=== PATIENT | female | born 1975 | race Caucasian/White ===

== ENCOUNTER 2017-07-28 15:40 | Emergency (ER) | payer MEDICAID, MEDICARE ==
[2017-07-28 15:49] VITALS: BP 139/84
--- NOTE | 2017-07-28 16:13 | UC ---
Throat Pain/Nasal Hari HPI - HPI Summary HPI Summary: 42 y/o female presents to the urgent care c/o dry cough, nasal congestion, yellowish nasal discharge for hte past 2 weeks. Mild sore throat at times w/ + PND She has been taking Sudafed PO w/o any relief of symptoms. sinus Pain and BURDEN is 8/10 today. she took Benadryl Po this morning to alleviate symptoms/ Her LF ear feels w/ a lot of pressure and she has felt mild chills at times and hot flashes. Pt denies fever, SOB, chest pain, wheezing, abdominal pain, N/V/D - History of Current Complaint Chief Complaint: UCRespiratory Stated Complaint: THROAT COMPLAINT Time Seen by Provider: 07/28/17 16:06 Hx Obtained From: Patient Hx Last Menstrual Period: July 05, 2017 Onset/Duration: Gradual Onset, Lasting Weeks - 2 weeks, Still Present, Worse Since - today Severity: Moderate Pain Intensity: 9 - sinus pain and BURDEN Pain Scale Used: 0-10 Numeric Cough: Nonproductive Associated Signs & Symptoms: Positive: Sinus Discomfort, Nasal Discharge, Other - chills w/ sore throat and +PND - Epiglottits Risk Factors Epiglottis Risk Factors: Negative - Allergies/Home Medications Allergies/Adverse Reactions: Allergies Allergy/AdvReac Type Severity Reaction Status Date / Time Penicillins Allergy Difficulty Verified 07/28/17 15:50 Breathing PMH/Surg Hx/FS Hx/Imm Hx Previously Healthy: Yes Endocrine History: Diabetes, Dyslipidemia GI/ History: Gastroesophageal Reflux - Surgical History Surgical History: Yes Surgery Procedure, Year, and Place: Tubal 2009,may 2014,2013 right shoulder , left shoulder 2 yrs ago - Family History Known Family History: Positive: Cardiac Disease, Hypertension, Diabetes, Respiratory Disease - asthma - Social History Occupation: Employed Full-time Lives: With Family Alcohol Use: None Substance Use Type: None Smoking Status (MU): Never Smoked Tobacco - Immunization History Most Recent Influenza Vaccination: Review of Systems Constitutional: Chills Skin: Negative Eyes: Negative ENT: Sore Throat, Ear Ache - left ear pressure, Nasal Discharge, Sinus Congestion, Sinus Pain/Tenderness Respiratory: Cough - dry Cardiovascular: Negative Gastrointestinal: Negative Genitourinary: Negative Motor: Negative Neurovascular: Negative Musculoskeletal: Negative Neurological: Headache Psychological: Negative Is Patient Immunocompromised?: No All Other Systems Reviewed And Are Negative: Yes Physical Exam - Summary Physical Exam Summary: Vitals: reviewed General: Well developed, well-nourished obese female patient with NAD. Head and face: Normocephalic and atraumatic, Positive tenderness over the frontal and maxillary sinuses.. Eyes: PERRLA, EOMI x 2. Normal conjunctiva. No eye discharge. ENT: Ears and TM with normal limits. Nose: edematous and erythematous nasal mucosa with with yellowish discharge and erythematous mucosa. Pharynx with erythema, no exudate. +PND yellowish Neck: Supple, no JVD, no carotid bruits and no lymphadenopathy. Lungs: clear, no rales, no rhonchi, no wheezes. CVS: RRR, S1 and S2 present no murmurs or gallops appreciated. Abdomen: soft nontender with positive bowel sounds. Extremities: no edema noted. Neuro: WNL. Skin: warm and dry Triage Information Reviewed: Yes Vital Signs: Initial Vital Signs Temp 98.9 F 07/28/17 15:47 Pulse 94 07/28/17 15:47 Resp 18 07/28/17 15:47 BP 139/84 07/28/17 15:47 Pulse Ox 98 07/28/17 15:47 Throat Pain/Nasal Course/Dx - Course Course Of Treatment: 42 y/o female presents to the urgent care c/o dry cough, nasal congestion, yellowish nasal discharge for hte past 2 weeks. Mild sore throat at times w/ +PND. She has been taking Sudafed PO w/o any relief of symptoms. sinus Pain and BURDEN is 8/10 today. she took Benadryl Po this morning to alleviate symptoms/ Her LF ear feels w/ a lot of pressure and she has felt mild chills at times and hot flashes. Pt denies fever, SOB, chest pain, wheezing , abdominal pain, N/V/D. Hx obtained. Pt w/ Acute bacterial sinusitis on examination. Pt with 2 weeks of symptoms getting worse. Pt PCP allergic. Pt Rx Doxycycline PO and flonase nasal spray. Tylenol PO for her headache.Pt given Ibuprofen PO at the clinic to alleivate BURDEN. Pt tolerated well medication given by nurse. Discharge instructions explained to Pt. Advised to Return to the clinic or PCP if symptoms do not improve.Pt understood and agreed with plan of care. - Differential Dx/Diagnosis Differential Diagnosis/HQI/PQRI: Influenza, Laryngitis, Pharyngitis, Sinusitis, URI Provider Diagnoses: 1- Acute bacterial sinusitis Discharge - Sign-Out/Discharge Documenting (check all that apply): Discharge/Admit/Transfer - D/C home - Discharge Plan Condition: Stable Disposition: HOME Prescriptions: Acetaminophen TAB* [Tylenol TAB*] 650 mg PO Q6H PRN #20 tab PRN Reason: Pain DOXYcycline CAP(*) [DOXYcycline 100MG CAP(*)] 100 mg PO BID #20 cap Fluticasone NASAL SPRAY 50MCG* [Flonase NASAL SPRAY 50MCG*] 2 spray BOTH NARES DAILY #1 btl Patient Education Materials: Sinusitis (ED) Referrals: Jaskaran Burns MD [Primary Care Provider] - 3 Days Additional Instructions: 1- Please increase fluid intake and rest. take full course of antibiotic to avoid resistance 2-Use Flonase as directed to help drain fluid. Also buy saline drops to clear sinuses 3-Take Tylenol Po to alleviate headache and sinus pain 4-Return to the clinic or PCP in 3 days if symptoms do not improve for further management and treatment - Billing Disposition and Condition Condition: STABLE Disposition: HOME
[2017-07-28] MEDS ORDERED: Ibuprofen TAB* 400 MG PO ONE (16:16)
== END 2017-07-28 16:30 | disposition home or self-care (01) ==
LOC: UCEAST 15:40
DX: J01.90 Acute sinusitis, unspecified (principal); B96.89 Other specified bacterial agents as the cause of diseases classified elsewhere; Z88.0 Allergy status to penicillin
CPT/HCPCS: 99212; A9270-GY; G0463

== ENCOUNTER 2017-09-17 08:30 | Emergency (ER) | payer MEDICAID ==
[2017-09-17 08:52] VITALS: BP 127/79
[2017-09-17] MEDS ORDERED: HYDROcodone/ACETAMIN 5-325 MG* 1 TAB PO ONE (09:13)
--- NOTE | 2017-09-17 09:19 | UC ---
Back Pain HPI - HPI Summary HPI Summary: Pt is a 42 y/o F w/ c/o right sided, lower back pain onsetting 2 days ago. Pain has gradually worsened since onset and on triage pain is rated 10/10. Pt believes pain did not result from any movements and has not had episodes w/ similar Sx previously. Movements worsen pain. Pt denies frontal pain and dysuria but notes increased frequency of urination. Pain does not radiate to buttocks. No Hx of UTIs nor kidney stones. - History of Current Complaint Chief Complaint: UCBackPain Stated Complaint: BACK PAIN Time Seen by Provider: 09/17/17 08:47 Hx Obtained From: Patient Hx Last Menstrual Period: 08/25/17 Onset/Duration: Lasting Days - 2 days ago, Worse Since Timing: Constant Severity Currently: Severe Pain Intensity: 10 Pain Scale Used: 0-10 Numeric - 10/10 Back Pain: Is Discrete @ - right lower back Aggravating Factor(s): Movement Alleviating Factor(s): Nothing Associated Signs And Symptoms: Positive: Other - increased frequency of urination, pain with movement - Allergies/Home Medications Allergies/Adverse Reactions: Allergies Allergy/AdvReac Type Severity Reaction Status Date / Time Penicillins Allergy Difficulty Verified 09/17/17 08:52 Breathing PMH/Surg Hx/FS Hx/Imm Hx Endocrine History: Diabetes, Other Other Endocrine History: NEGATIVE: thyroid disease Cardiovascular History: Hypertension Respiratory History: Other Other Respiratory History: NEGATIVE: COPD, asthma GI/ History: Other Other GI/ History: NEGATIVE: ulcer Other History Of: Negative For: HIV - Surgical History Surgical History: Yes Surgery Procedure, Year, and Place: Tubal 2009,may 2014,2013 right shoulder , left shoulder 2 yrs ago - Family History Known Family History: Positive: Cardiac Disease, Hypertension, Diabetes, Respiratory Disease - asthma - Social History Alcohol Use: None Substance Use Type: None Smoking Status (MU): Never Smoked Tobacco - Immunization History Most Recent Influenza Vaccination: 2014/2015 Review of Systems Genitourinary: Frequency - increased urination frequency, Other - NEGATIVE: dysuria Musculoskeletal: Other: - right-sided lower back pain aggravated by movements All Other Systems Reviewed And Are Negative: Yes Physical Exam - Summary Physical Exam Summary: General: well-appearing, no mild to moderate pain distress with movement Skin: warm, color reflects adequate perfusion, dry Head: normal Eyes: EOMI, GIL ENT: normal Neck: supple, nontender Respiratory: CTA, breath sounds present Cardiovascular: RRR Abdomen: soft, nontender Bowel: present Musculoskeletal: strength/ROM intact, tender to palpation midline lumbar spine and right flank Neurological: sensory/motor intact, A&O x3 Psychological: affect/mood appropriate Triage Information Reviewed: Yes Vital Signs: Initial Vital Signs Temp 99.6 F 09/17/17 08:50 Pulse 82 09/17/17 08:50 Resp 14 09/17/17 08:50 BP 127/79 09/17/17 08:50 Pulse Ox 97 09/17/17 08:50 Vital Signs Reviewed: Yes Back Pain Course/Dx - Course Course Of Treatment: DISCUSSED THE NEED TO GO TO THE EMERGENCY DEPARTMENT FOR FURTHER EVALUATION OF HER FLANK AND LOW BACK PAIN TO EVALUATE FOR POSSIBLE KIDNEY STONE AND OTHER CAUSES OF FLANK PAIN. THERE IS NO CT OR ULTRASOUND HERE IN CLINIC TODAY. - Differential Dx/Diagnosis Provider Diagnoses: LOW BACK PAIN. RIGHT FLANK PAIN Discharge - Sign-Out/Discharge Documenting (check all that apply): Patient Departure - Discharge Plan Condition: Stable Disposition: HOME-RECOMMEND TO ED Patient Education Materials: Acute Low Back Pain (ED), Flank Pain (ED) Referrals: Jaskaran Burns MD [Primary Care Provider] - Additional Instructions: GO DIRECTLY TO THE EMERGENCY DEPARTMENT FOR FURTHER EVALUATION OF YOUR RIGHT FLANK/BACK PAIN. - Billing Disposition and Condition Condition: STABLE Disposition: Home-Recommend to ED
== END 2017-09-17 09:45 | disposition home health service (06) ==
LOC: UCEAST 08:30
DX: M54.5 Low back pain (principal); R35.0 Frequency of micturition; E11.9 Type 2 diabetes mellitus without complications; I10 Essential (primary) hypertension; Z88.0 Allergy status to penicillin; Z82.49 Family history of ischemic heart disease and other diseases of the circulatory system; Z83.3 Family history of diabetes mellitus; Z82.5 Family history of asthma and other chronic lower respiratory diseases
CPT/HCPCS: 81003; 87086; 99212; G0463

== ENCOUNTER 2017-09-17 15:59 | Emergency (ER) | payer MEDICARE, MEDICAID ==
[2017-09-17] MEDS ORDERED: NS 0.9% 1000 ML* 1,000 ML IV ONE (17:40)
[2017-09-17 18:05] LABS: ABS Basophils 0.1 10^3/ul (0-0.2); ABS Eosinophils 0.2 10^3/ul (0-0.6); ABS Lymphocytes 2.3 10^3/ul (1.0-4.8); ABS Monocytes 0.4 10^3/ul (0-0.8); ABS Neutrophils 3.5 10^3/ul (1.5-7.7); ABS Nucleated RBC 0 10^3/ul; Eosinophil % 3.2 % (0-6); Hematocrit 39 % (35-47); Hemoglobin 13.2 g/dl (12.0-16.0); Lymphocyte % 35.5 % (25-47); Mean Corpuscular HGB Conc 34 g/dl (31-36); Mean Corpuscular Hemoglobin 31 pg (27-31); Mean Corpuscular Volume 91 fL (80-97); Mean Platelet Volume 8.1 um3 (7.4-10.4); Nucleated Red Blood Cells % 0.1; Platelet Count 242 10^3/ul (150-450); Red Blood Count 4.22 10^6/ul (4.00-5.40); Red Cell Distribution Width 14 % (10.5-15); White Blood Count 6.5 10^3/ul (3.5-10.8)
[2017-09-17 18:17] LABS: Urine Appearance Cloudy; Urine Blood Negative (Negative); Urine Color Yellow; Urine Ketones Negative (Negative); Urine Protein Negative (Negative); Urine Red Blood Cell Trace(0-2/hpf) (Absent); Urine Specific Gravity 1.018 (1.010-1.030); Urine Urobilinogen Negative (Negative); Urine White Blood Cell Trace(0-5/hpf) (Absent)
[2017-09-17 18:22] LABS: EGFR Non-African American 88.4 (>60)
[2017-09-17] MEDS ORDERED: Morphine VIAL* 10 MG/ML 1 ML VIAL IV ONE (18:25)
[2017-09-17] MEDS ORDERED: Ondansetron INJ* 2 MG/ML VIAL IV PRN (18:25)
--- NOTE | 2017-09-17 18:27 | RAD ---
CLINICAL HISTORY: Right flank pain COMPARISON: None TECHNIQUE: Noncontrast CT examination of the abdomen and pelvis from the lung bases through the initial tuberosities. FINDINGS: VISUALIZED LUNG BASES: The visualized lung bases are grossly clear. There is no pleural effusion. ABDOMEN AND PELVIS: Evaluation of the solid organs and vasculature is limited without intravenous contrast. The liver is homogenously hypodense relative to the spleen. The liver is enlarged measuring 25 cm in greatest cephalocaudal dimension. The spleen, pancreas and adrenal glands are grossly normal in appearance. The gallbladder is normal. The kidneys are normal in appearance without focal mass, calcification or signs of hydronephrosis. Evaluation of the gastrointestinal tract is limited without oral contrast. The small and large bowel are not distended.The patient's normal appendix is identified in the right lower quadrant measuring 6 mm in diameter (axial image #128). There is no gross retroperitoneal or mesenteric lymphadenopathy. The pelvic viscera is normal in appearance. Surgical clips are noted the bilateral fallopian tubes consistent with the patient's history of tubal ligation. The abdominal aorta and iliac arteries are normal in course and diameter. Mild degenerative changes include multilevel loss of intervertebral disc height involving the lower thoracic and lumbar spine.There are no sinister bone lesions. IMPRESSION: 1. No renal calculi or signs of obstructive uropathy. 2. Hepatomegaly with likely hepatic steatosis. Please correlate to LFTs.
--- NOTE | 2017-09-17 18:34 | ED ---
Back Pain - HPI Summary HPI Summary: Pt sent from c/o right flank pain, nausea, flank pain with urination x 2 days. Also c/o alternating constipation with diarrhea. Flank pain initially intermittent, now constant since yesterday. Denies fever, hx of kidney stones, trauma, hematuria, vaginal sx, cp, sob, vomiting. Med hx = DM, HTN, HDL, depression. Ab/pel surgical hx = BTL. - History of Current Complaint Chief Complaint: EDFlankPain Stated Complaint: FLANK PAIN Time Seen by Provider: 09/17/17 17:37 Hx Obtained From: Patient Hx Last Menstrual Period: 08/25/17 Onset/Duration: Gradual Onset Onset/Duration: Started Days Ago Timing: Constant, Intermittent Back Pain Location: Is Discrete @ Severity Initially: Mild Severity Currently: Severe Pain Intensity: 4 Pain Scale Used: 0-10 Numeric Character: Sharp, Dull, Aching Associated Signs And Symptoms: Positive: Flank Pain - Allergies/Home Medications Allergies/Adverse Reactions: Allergies Allergy/AdvReac Type Severity Reaction Status Date / Time Penicillins Allergy Difficulty Verified 09/17/17 08:52 Breathing PMH/Surg Hx/FS Hx/Imm Hx Endocrine/Hematology History: Reports: Hx Diabetes - II Denies: Hx Anticoagulant Therapy, Hx Thyroid Disease Cardiovascular History: Reports: Hx Hypertension Denies: Hx Pacemaker/ICD Respiratory History: Reports: Hx Pneumonia Denies: Hx Asthma, Hx Chronic Obstructive Pulmonary Disease (COPD) GI History: Denies: Hx Ulcer History: Denies: Hx Dialysis Musculoskeletal History: Denies: Hx Rheumatoid Arthritis, Hx Osteoporosis Sensory History: Denies: Hx Hearing Aid Neurological History: Denies: Hx CVA Psychiatric History: Reports: Hx Anxiety Denies: Hx Panic Disorder - Cancer History Hx Chemotherapy: No Hx Radiation Therapy: No - Surgical History Surgery Procedure, Year, and Place: Tubal 2009,may 2014,2013 right shoulder , left shoulder 2 yrs ago Infectious Disease History: No Infectious Disease History: Denies: Hx Clostridium Difficile, Hx Hepatitis, Hx Human Immunodeficiency Virus (HIV), History Other Infectious Disease, Traveled Outside the [place] in Last 30 Days - Family History Known Family History: Positive: None, Unknown, Cardiac Disease, Hypertension, Diabetes, Respiratory Disease - asthma - Social History Alcohol Use: None Hx Substance Use: No Substance Use Type: Reports: None Hx Tobacco Use: No Smoking Status (MU): Former Smoker Review of Systems Constitutional: Negative Eyes: Negative ENT: Negative Cardiovascular: Negative Respiratory: Negative Positive: Nausea Positive: flank pain Musculoskeletal: Negative Skin: Negative Neurological: Negative Psychological: Normal All Other Systems Reviewed And Are Negative: Yes Physical Exam - Summary Physical Exam Summary: Rt CVA tenderness. Abdomen diffusely mildly TTP. Triage Information Reviewed: Yes Vital Signs On Initial Exam: Initial Vitals Temp Pulse Resp BP Pulse Ox 98.4 F 82 16 131/66 96 09/17/17 16:13 09/17/17 16:13 09/17/17 16:13 09/17/17 16:13 09/17/17 16:13 Vital Signs Reviewed: Yes Appearance: Positive: Well-Appearing Skin: Positive: Warm Head/Face: Positive: Normal Head/Face Inspection Eyes: Positive: Normal Neck: Positive: Supple Respiratory/Lung Sounds: Positive: Clear to Auscultation Cardiovascular: Positive: Normal Abdomen Description: Positive: Other: Musculoskeletal: Positive: Normal Neurological: Positive: Normal Psychiatric: Positive: Normal AVPU Assessment: Alert - Bonita Coma Scale Best Eye Response: 4 - Spontaneous Best Motor Response: 6 - Obeys Commands Best Verbal Response: 5 - Oriented Coma Scale Total: 15 Diagnostics - Vital Signs Vital Signs Temp Pulse Resp BP Pulse Ox 09/17/17 16:13 98.4 F 82 16 131/66 96 - Laboratory Lab Results: Lab Results 09/17/17 09/17/17 09/17/17 Range/Units 17:58 17:58 17:58 WBC 6.5 (3.5-10.8) 10^3/ul RBC 4.22 (4.00-5.40) 10^6/ul Hgb 13.2 (12.0-16.0) g/dl Hct 39 (35-47) % MCV 91 (80-97) fL MCH 31 (27-31) pg MCHC 34 (31-36) g/dl RDW 14 (10.5-15) % Plt Count 242 (150-450) 10^3/ul MPV 8.1 (7.4-10.4) um3 Neut % (Auto) 54.1 (38-83) % Lymph % (Auto) 35.5 (25-47) % Valencia % (Auto) 6.2 (0-7) % Eos % (Auto) 3.2 (0-6) % Baso % (Auto) 1.0 (0-2) % Absolute Neuts (auto) 3.5 (1.5-7.7) 10^3/ul Absolute Lymphs (auto) 2.3 (1.0-4.8) 10^3/ul Absolute Monos (auto) 0.4 (0-0.8) 10^3/ul Absolute Eos (auto) 0.2 (0-0.6) 10^3/ul Absolute Basos (auto) 0.1 (0-0.2) 10^3/ul Absolute Nucleated RBC 0 10^3/ul Nucleated RBC % 0.1 Sodium 139 (135-145) mmol/L Potassium 4.3 (3.5-5.0) mmol/L Chloride 105 (101-111) mmol/L Carbon Dioxide 27 (22-32) mmol/L Anion Gap 7 (2-11) mmol/L BUN 13 (6-24) mg/dL Creatinine 0.72 (0.51-0.95) mg/dL Est GFR ( Amer) 107.0 (>60) Est GFR (Non-Af Amer) 88.4 (>60) BUN/Creatinine Ratio 18.1 (8-20) Glucose 130 H (70-100) mg/dL Lactic Acid 1.2 (0.5-2.0) mmol/L Calcium 9.1 (8.6-10.3) mg/dL Total Bilirubin 0.50 (0.2-1.0) mg/dL AST 19 (13-39) U/L ALT 32 (7-52) U/L Alkaline Phosphatase 56 (34-104) U/L C-Reactive Protein 9.34 H (<8.01) mg/L Total Protein 6.8 (6.4-8.9) g/dL Albumin 4.2 (3.2-5.2) g/dL Globulin 2.6 (2-4) g/dL Albumin/Globulin Ratio 1.6 (1-3) Beta HCG, Quant Pending Urine Color Urine Appearance Urine pH (5-9) Ur Specific Pinson (1.010-1.030) Urine Protein (Negative) Urine Ketones (Negative) Urine Blood (Negative) Urine Nitrate (Negative) Urine Bilirubin (Negative) Urine Urobilinogen (Negative) Ur Leukocyte Esterase (Negative) Urine WBC (Auto) (Absent) Urine RBC (Auto) (Absent) Ur Squamous Epith Cells (Absent) Urine Bacteria (Absent) Urine Glucose (Negative) 09/17/17 Range/Units 18:06 WBC (3.5-10.8) 10^3/ul RBC (4.00-5.40) 10^6/ul Hgb (12.0-16.0) g/dl Hct (35-47) % MCV (80-97) fL MCH (27-31) pg MCHC (31-36) g/dl RDW (10.5-15) % Plt Count (150-450) 10^3/ul MPV (7.4-10.4) um3 Neut % (Auto) (38-83) % Lymph % (Auto) (25-47) % Valencia % (Auto) (0-7) % Eos % (Auto) (0-6) % Baso % (Auto) (0-2) % Absolute Neuts (auto) (1.5-7.7) 10^3/ul Absolute Lymphs (auto) (1.0-4.8) 10^3/ul Absolute Monos (auto) (0-0.8) 10^3/ul Absolute Eos (auto) (0-0.6) 10^3/ul Absolute Basos (auto) (0-0.2) 10^3/ul Absolute Nucleated RBC 10^3/ul Nucleated RBC % Sodium (135-145) mmol/L Potassium (3.5-5.0) mmol/L Chloride (101-111) mmol/L Carbon Dioxide (22-32) mmol/L Anion Gap (2-11) mmol/L BUN (6-24) mg/dL Creatinine (0.51-0.95) mg/dL Est GFR ( Amer) (>60) Est GFR (Non-Af Amer) (>60) BUN/Creatinine Ratio (8-20) Glucose (70-100) mg/dL Lactic Acid (0.5-2.0) mmol/L Calcium (8.6-10.3) mg/dL Total Bilirubin (0.2-1.0) mg/dL AST (13-39) U/L ALT (7-52) U/L Alkaline Phosphatase (34-104) U/L C-Reactive Protein (<8.01) mg/L Total Protein (6.4-8.9) g/dL Albumin (3.2-5.2) g/dL Globulin (2-4) g/dL Albumin/Globulin Ratio (1-3) Beta HCG, Quant Urine Color Yellow Urine Appearance Cloudy Urine pH 5.0 (5-9) Ur Specific Pinson 1.018 (1.010-1.030) Urine Protein Negative (Negative) Urine Ketones Negative (Negative) Urine Blood Negative (Negative) Urine Nitrate Negative (Negative) Urine Bilirubin Negative (Negative) Urine Urobilinogen Negative (Negative) Ur Leukocyte Esterase 2+ A (Negative) Urine WBC (Auto) Trace(0-5/hpf) (Absent) Urine RBC (Auto) Trace(0-2/hpf) (Absent) Ur Squamous Epith Cells Present A (Absent) Urine Bacteria Absent (Absent) Urine Glucose Negative (Negative) Result Diagrams: 09/17/17 17:58 09/17/17 17:58 Lab Statement: Any lab studies that have been ordered have been reviewed, and results considered in the medical decision making process. - CT ab/pel without CT Interpretation: No Acute Changes CT Interpretation Completed By: Radiologist Back Pain Course/Dx - Course Course Of Treatment: Pt sent from c/o right flank pain, nausea, flank pain with urination x 2 days. Also c/o alternating constipation with diarrhea. Flank pain initially intermittent, now constant since yesterday. Denies fever, hx of kidney stones, trauma, hematuria, vaginal sx, cp, sob, vomiting. Med hx = DM, HTN, HDL, depression. Ab/pel surgical hx = BTL. PE: Rt CVA tenderness. Abdomen diffusely mildly TTP. VS wnl. Labs unremarkable. CT without contrast negative for acute process including renal calculus. Borderline UTI. Rx for Cipro, phenergan. Follow-up with primary care - Diagnoses Provider Diagnoses: UTI (urinary tract infection) Discharge - Sign-Out/Discharge Documenting (check all that apply): Patient Departure - Discharge Plan Condition: Stable Disposition: HOME Prescriptions: Ciprofloxacin HCl [Cipro] 500 mg PO BID 10 Days #20 tablet Promethazine TAB* [Phenergan TAB*] 25 mg PO Q8H PRN 5 Days #15 tab PRN Reason: Nausea Tramadol HCl 50 mg PO TID 3 Days #6 tablet MDD 3 Patient Education Materials: Urinary Tract Infection in Women (ED) Referrals: Jaskaran Burns MD [Primary Care Provider] - Additional Instructions: Take antibiotics as directed. Follow-up with primary care. Return to the ED for any new or worsening symptoms - Billing Disposition and Condition Condition: STABLE Disposition: Home
[2017-09-17] MEDS ORDERED: Morphine VIAL* 4 MG/ML VIAL (1 ml vial) IV ONE ×2 (18:56→19:01)
[2017-09-17] MEDS ORDERED: Ciprofloxacin TAB* 500 MG PO ONE (19:43)
[2017-09-17 19:47] VITALS: BP 133/89
[2017-09-17] MEDS ORDERED: Ondansetron ODT TAB* 4 MG PO ONE (19:48)
== END 2017-09-17 20:20 | disposition home or self-care (01) ==
LOC: ED 15:59
DX: N39.0 Urinary tract infection, site not specified (principal); R11.0 Nausea; K59.00 Constipation, unspecified; R19.7 Diarrhea, unspecified; E11.9 Type 2 diabetes mellitus without complications; I10 Essential (primary) hypertension; F41.9 Anxiety disorder, unspecified; Z88.0 Allergy status to penicillin; Z82.49 Family history of ischemic heart disease and other diseases of the circulatory system; Z83.3 Family history of diabetes mellitus; Z82.5 Family history of asthma and other chronic lower respiratory diseases; Z87.891 Personal history of nicotine dependence
CPT/HCPCS: 36415; 74176; 80053; 81003; 81015; 83605; 84702; 85025; 86140; 96374; 99284; A9270-GY; J2270; J2405

== ENCOUNTER 2018-01-21 07:31 | Emergency (ER) | payer MEDICARE, MEDICAID ==
[2018-01-21] MEDS ORDERED: Ketorolac INJ* 30 MG/ML 1 ML VIAL IM ONE (07:50)
[2018-01-21] MEDS ORDERED: Lidocaine PATCH 5%* 1 PATCH TRANSDERM ONE (07:50)
[2018-01-21] MEDS ORDERED: Methocarbamol TAB* 500 MG PO ONE (07:50)
--- NOTE | 2018-01-21 07:56 | ED ---
Back Pain - HPI Summary HPI Summary: 42 year old female presents with back pain yesterday. She states it started after she was shoveling. States greatest on the left side of her lower back. she denies any urinary symptoms. No loss of bowel or bladder saddle anesthesias. No fevers. She states he gets occasional numbness and tingling down her left leg when she walks. She still able to ambulate. She took some ibuprofen without relief today. She denies any history of back pain. no abdominal pain. No chest pain shortness breath. - History of Current Complaint Chief Complaint: EDBackInjuryPain Stated Complaint: LOWER BACK PAIN Time Seen by Provider: 01/21/18 07:42 Hx Last Menstrual Period: 08/25/17 Pain Intensity: 10 - Allergies/Home Medications Allergies/Adverse Reactions: Allergies Allergy/AdvReac Type Severity Reaction Status Date / Time Penicillins Allergy Difficulty Verified 09/17/17 08:52 Breathing PMH/Surg Hx/FS Hx/Imm Hx Endocrine/Hematology History: Reports: Hx Diabetes - II Denies: Hx Anticoagulant Therapy, Hx Thyroid Disease Cardiovascular History: Reports: Hx Hypertension Denies: Hx Pacemaker/ICD Respiratory History: Reports: Hx Pneumonia Denies: Hx Asthma, Hx Chronic Obstructive Pulmonary Disease (COPD) GI History: Denies: Hx Ulcer History: Denies: Hx Dialysis Musculoskeletal History: Denies: Hx Rheumatoid Arthritis, Hx Osteoporosis Sensory History: Denies: Hx Hearing Aid Neurological History: Denies: Hx CVA Psychiatric History: Reports: Hx Anxiety Denies: Hx Panic Disorder - Cancer History Hx Chemotherapy: No Hx Radiation Therapy: No - Surgical History Surgery Procedure, Year, and Place: Tubal 2009,may 2014,2013 right shoulder , left shoulder 2 yrs ago Infectious Disease History: No Infectious Disease History: Denies: Hx Clostridium Difficile, Hx Hepatitis, Hx Human Immunodeficiency Virus (HIV), History Other Infectious Disease, Traveled Outside the [place] in Last 30 Days - Family History Known Family History: Positive: None, Unknown, Cardiac Disease, Hypertension, Diabetes, Respiratory Disease - asthma - Social History Alcohol Use: None Hx Substance Use: No Substance Use Type: Reports: None Hx Tobacco Use: No Smoking Status (MU): Former Smoker Review of Systems Negative: Fever Negative: Chest Pain Negative: Shortness Of Breath Positive: Myalgia - back pain All Other Systems Reviewed And Are Negative: Yes Physical Exam Triage Information Reviewed: Yes Vital Signs On Initial Exam: Initial Vitals Temp Pulse Resp BP Pulse Ox 97.6 F 84 16 137/76 97 01/21/18 07:37 01/21/18 07:37 01/21/18 07:37 01/21/18 07:37 01/21/18 07:37 Vital Signs Reviewed: Yes Appearance: Positive: Well-Appearing Skin: Positive: Warm, Dry Head/Face: Positive: Normal Head/Face Inspection Eyes: Positive: Normal, Conjunctiva Clear ENT: Positive: Pharynx normal Respiratory/Lung Sounds: Positive: Clear to Auscultation, Breath Sounds Present Cardiovascular: Positive: Normal, RRR Abdomen Description: Positive: Nontender, Soft Bowel Sounds: Positive: Present Musculoskeletal: Positive: Limited @ - back, Other - tenderness on left side of neck, good pulses, good leg strength, neg SLR, tendenress over SI joint left Neurological: Positive: Reflexes Intact - patella, Normal Gait Psychiatric: Positive: Normal Diagnostics - Vital Signs Vital Signs Temp Pulse Resp BP Pulse Ox 01/21/18 07:37 97.6 F 84 16 137/76 97 - Laboratory Lab Statement: Any lab studies that have been ordered have been reviewed, and results considered in the medical decision making process. - Radiology lumbar Radiology Interpretation Completed By: Radiologist Summary of Radiographic Findings: IMPRESSION: #. No acute radiographic abnormality of the lumbar sacral spine. #. Very mild degenerative spondylosis without significant interval change. Re-Evaluation - Re-Evaluation First Eval Re-Evaluation Time: 08:50 Change: Improved Comment: feeling better after robaxin and toradol Back Pain Course/Dx - Course Course Of Treatment: 42 year old female presents with back pain yesterday. She states it started after she was shoveling. States greatest on the left side of her lower back. she denies any urinary symptoms. No loss of bowel or bladder saddle anesthesias. No fevers. She states he gets occasional numbness and tingling down her left leg when she walks. She still able to ambulate. She took some ibuprofen without relief today. She denies any history of back pain. no abdominal pain. No chest pain shortness breath. On exam tenderness over left side of her back. Neurovascular intact. X-ray shows no fx. discussed will add on muscle relaxer and lidocaine for the pain. told to follow up with primary. patient understand and agrees with plan. - Diagnoses Differential Diagnosis/HQI/PQRI: Positive: Arthritis, Herniated Disc, Strain, Sprain Provider Diagnoses: Back pain Discharge - Sign-Out/Discharge Documenting (check all that apply): Patient Departure - Discharge Plan Condition: Good Disposition: HOME Prescriptions: Lidocaine PATCH 5%* [Lidoderm 5% Patch*] 1 patch TRANSDERM DAILY #5 patch Methocarbamol TAB* [Robaxin 500 MG TAB*] 500 mg PO TID PRN #21 tab PRN Reason: Pain Patient Education Materials: Back Pain (ED) Forms: *Work Release Referrals: Jaskaran Burns MD [Primary Care Provider] - Additional Instructions: Take muscle relaxers three times a day Apply lidocaine patches to area for up to 12 hours in one 24 hour period Use ibuprofen or Tylenol for pain every 6 hours ice/heat area, move as much as possible Follow up with primary within 5 days Return to ED if develop any new or worsening symptoms - Billing Disposition and Condition Condition: GOOD Disposition: Home
[2018-01-21 09:08] VITALS: BP 129/75
[2018-01-21] MEDS ORDERED: Lidocaine Patch REMOVE* 1 NOTE MISC SCH (21:00)
== END 2018-01-21 09:02 | disposition home or self-care (01) ==
LOC: ED 07:31
DX: M54.5 Low back pain (principal); Z88.0 Allergy status to penicillin; Z87.891 Personal history of nicotine dependence
CPT/HCPCS: 72110; 96372; 99282; A9270-GY; J1885

== ENCOUNTER 2018-02-04 17:15 | Emergency (ER) | payer MEDICARE, MEDICAID ==
[2018-02-04 17:42] VITALS: BP 139/84
[2018-02-04] MEDS ORDERED: Azithromycin TAB* 250 MG PO ONE (17:56)
--- NOTE | 2018-02-04 18:01 | UC ---
Ear Complaint HPI - HPI Summary HPI Summary: 42 y/o female with L sided ear pain since tuesday, no drainage noted, mild sinus congestion, no cough, no fever, + chills. no SOB, no pain on R side, pain severe, getting worse since tuesday. - History of Current Complaint Chief Complaint: UCGeneralIllness Stated Complaint: EAR COMPLAINT Time Seen by Provider: 02/04/18 17:43 Hx Obtained From: Patient Hx Last Menstrual Period: 01/31/18 Onset/Duration: Sudden Onset, Lasting Days Severity Initially: Mild Severity Currently: Severe Pain Intensity: 10 Pain Scale Used: 0-10 Numeric - Allergies/Home Medications Allergies/Adverse Reactions: Allergies Allergy/AdvReac Type Severity Reaction Status Date / Time Penicillins Allergy Difficulty Verified 02/04/18 17:35 Breathing PMH/Surg Hx/FS Hx/Imm Hx Previously Healthy: Yes - denies Other History Of: Negative For: HIV, Anticoagulant Therapy - Surgical History Surgical History: Yes Surgery Procedure, Year, and Place: Tubal 2009,may 2014,2013 right shoulder , left shoulder 2015 - Family History Known Family History: Positive: None, Unknown, Cardiac Disease, Hypertension, Diabetes, Respiratory Disease - asthma - Social History Alcohol Use: None Substance Use Type: None Smoking Status (MU): Former Smoker - Immunization History Most Recent Influenza Vaccination: Review of Systems All Other Systems Reviewed And Are Negative: Yes ENT: Positive: Ear Ache - L Is Patient Immunocompromised?: No Physical Exam Triage Information Reviewed: Yes Appearance: Well-Nourished, Ill-Appearing - mild, Pain Distress - moderate at rest Vital Signs: Initial Vital Signs Temp 99.3 F 02/04/18 17:38 Pulse 86 02/04/18 17:38 Resp 18 02/04/18 17:38 BP 139/84 02/04/18 17:38 Pulse Ox 99 02/04/18 17:38 Eyes: Positive: Conjunctiva Clear ENT: Positive: Pharynx normal, TMs normal, Other - tenderness to palpation over per-auricl and severe tenderness over mastoid. Negative: TM bulging, TM dull, TM red, Sinus tenderness Neck: Positive: Supple, Nontender, No Lymphadenopathy Ear Complaint Course/Dx - Course Course Of Treatment: possible mastoiditis, no CT/ imaging available, recommended f/u at ER, patient voiced understanding - Differential Dx/Diagnosis Differential Diagnosis/HQI/PQRI: Cellulitis, Cerumen Impaction Provider Diagnosis: Ear pain, left Discharge - Sign-Out/Discharge Documenting (check all that apply): Patient Departure All imaging exams completed and their final reports reviewed: No Studies - Discharge Plan Condition: Good Disposition: HOME-RECOMMEND TO ED Patient Education Materials: Mastoiditis (ED) Referrals: Jaskaran Burns MD [Primary Care Provider] - Additional Instructions: - Recommended to go to ER due to increased pain and location of pain, unable to do imaging at urgent care - Billing Disposition and Condition Condition: GOOD Disposition: Home-Recommend to ED
== END 2018-02-04 18:04 | disposition home health service (06) ==
LOC: UCEAST 17:15
DX: H92.02 Otalgia, left ear (principal); Z88.0 Allergy status to penicillin; Z87.891 Personal history of nicotine dependence
CPT/HCPCS: 99212; A9270-GY; G0463

== ENCOUNTER 2018-03-04 11:21 | Emergency (ER) | payer MEDICARE, MEDICAID ==
[2018-03-04 11:32] VITALS: BP 147/91
--- NOTE | 2018-03-04 12:02 | UC ---
Cardiac HPI - HPI Summary HPI Summary: 42-year-old woman comes to clinic with a chief complaint of having hot flashes and not feeling well today. She had an episode just prior to arrival and came here to clinic. She is a diabetic and has been prescribed Januvia. She 1 out of Januvia for several weeks and her sugar she said were 200 and higher. She restarted the Januvia last night. sHe reports a blood sugar of 180 today. She reports having a fruity taste in her mouth taking lots of water and urinating a lot of dark urine. She's been having chest pain for the last 2 days. She did not have any chest pain today. The pains been a 10 out of 10 on the left side of the chest radiating to the right side of the chest she's been nauseous sweaty short of breath with the chest pain. She had chest pain yesterday and the day before yesterday. - History of Current Complaint Chief Complaint: UCGeneralIllness Stated Complaint: DRY THROAT, BODY ITCHING Time Seen by Provider: 03/04/18 11:39 Hx Last Menstrual Period: [id number] Pain Intensity: 9 - Allergy/Home Medications Allergies/Adverse Reactions: Allergies Allergy/AdvReac Type Severity Reaction Status Date / Time Penicillins Allergy Difficulty Verified 03/04/18 11:33 Breathing PMH/Surg Hx/FS Hx/Imm Hx Endocrine History: Diabetes, Dyslipidemia Cardiovascular History: Hypertension Other History Of: Negative For: HIV, Anticoagulant Therapy - Surgical History Surgical History: Yes Surgery Procedure, Year, and Place: Tubal 2009,may 2014,2013 right shoulder , left shoulder 2015 - Family History Known Family History: Positive: None, Unknown, Cardiac Disease, Hypertension, Diabetes, Respiratory Disease - asthma - Social History Alcohol Use: None Substance Use Type: None Smoking Status (MU): Former Smoker - Immunization History Most Recent Influenza Vaccination: Review of Systems All Other Systems Reviewed And Are Negative: Yes Constitutional: Positive: Negative Skin: Positive: Negative Eyes: Positive: Negative ENT: Positive: Negative Respiratory: Positive: Shortness Of Breath Cardiovascular: Positive: Chest Pain Gastrointestinal: Positive: Nausea. Negative: Abdominal Pain Genitourinary: Positive: Frequency Motor: Positive: Negative Neurovascular: Positive: Negative Musculoskeletal: Positive: Negative Neurological: Positive: Negative Psychological: Positive: Negative Is Patient Immunocompromised?: No Physical Exam Triage Information Reviewed: Yes Appearance: Well-Appearing, No Pain Distress, Well-Nourished Vital Signs: Initial Vital Signs Temp 97.8 F 03/04/18 11:27 Pulse 83 03/04/18 11:27 Resp 22 03/04/18 11:27 BP 147/91 03/04/18 11:27 Pulse Ox 99 03/04/18 11:27 Vital Signs Reviewed: Yes Eye Exam: Normal Eyes: Positive: Conjunctiva Clear ENT: Positive: Pharynx normal, TMs normal Neck exam: Normal Neck: Positive: Supple Respiratory: Positive: Lungs clear, Normal breath sounds, No respiratory distress Cardiovascular: Positive: RRR Musculoskeletal Exam: Normal Musculoskeletal: Positive: Strength Intact, ROM Intact Neurological Exam: Normal Neurological: Positive: Alert, Muscle Tone Normal Psychological Exam: Normal Psychological: Positive: Normal Response To Family, Age Appropriate Behavior Skin Exam: Normal Diagnostics - EKG Cardiac Rate: NL - at 11:44 Cardiac Rhythm: Sinus: Normal - 78 bpm Ectopy: None ST Segment: Normal EKG Comparison: No Significant Change - from 02/27/16 ekg - Assessment/Plan Course Of Treatment: Fingerstick blood sugar here in clinic was 125. Urine had trace leuks but she does not have any UTI symptoms. Therefore at this time will not treat for UTI. Urine specific gravity was high indicating dehydration. I discussed going to the emergency department for further evaluation of the chest pain that she's been having. Patient told me she did not want to go to the emergency department at this time. I discussed her EKG results today which at this time does not show any ischemic changes. I recommended she drink plenty of fluids and watch her blood sugar closely. She has an appointment with her new programmer analyst Dr. Nolasco at [place] [facility] on March and she plans on following up with him at that time. - Clinical Impression Provider Diagnosis: Chest pain, Dehydration Discharge - Sign-Out/Discharge Documenting (check all that apply): Patient Departure All imaging exams completed and their final reports reviewed: No Studies - Discharge Plan Condition: Stable Disposition: HOME Patient Education Materials: Chest Pain (ED), Dehydration (ED) Forms: *Work Release Referrals: Jaskaran Burns MD [Primary Care Provider] - Mark Pimentel DO [Doctor of Osteopathy] - Additional Instructions: GO DIRECTLY TO THE EMERGENCY DEPARTMENT FOR FURTHER EVALUATION OF YOUR CHEST PAIN AND OTHER SYMPTOMS. FOLLOW UP WITH DR PIMENTEL ON 03/10/18 SCHEDULED. GET RECHECKED SOONER FOR ANY WORSENING OF YOUR CONDITION OR QUESTIONS OR CONCERNS. - Billing Disposition and Condition Condition: STABLE Disposition: Home
== END 2018-03-04 12:52 | disposition home health service (06) ==
LOC: UCEAST 11:21
DX: R07.9 Chest pain, unspecified (principal); E86.0 Dehydration; E11.9 Type 2 diabetes mellitus without complications; I10 Essential (primary) hypertension; Z88.0 Allergy status to penicillin; Z87.891 Personal history of nicotine dependence
CPT/HCPCS: 81003; 84702; 87086; 93005; 99212; G0463

== ENCOUNTER 2018-03-06 11:03 | Emergency (ER) | payer MEDICARE, MEDICAID ==
[2018-03-06 12:31] LABS: ABS Basophils 0 10^3/ul (0-0.2); ABS Eosinophils 0.3 10^3/ul (0-0.6); ABS Lymphocytes 1.9 10^3/ul (1.0-4.8); ABS Monocytes 0.5 10^3/ul (0-0.8); ABS Neutrophils 6.4 10^3/ul (1.5-7.7); ABS Nucleated RBC 0 10^3/ul; Eosinophil % 3.3 %; Hematocrit 40 % (35-47); Hemoglobin 13.8 g/dl (12.0-16.0); Lymphocyte % 20.3 %; Mean Corpuscular HGB Conc 34 g/dl (31-36); Mean Corpuscular Hemoglobin 31 pg (27-31); Mean Corpuscular Volume 92 fL (80-97); Mean Platelet Volume 8.4 fL (7.4-10.4); Nucleated Red Blood Cells % 0; Platelet Count 274 10^3/ul (150-450); Red Blood Count 4.41 10^6/ul (4.00-5.40); Red Cell Distribution Width 14 % (10.5-15); White Blood Count 9.1 10^3/ul (3.5-10.8)
[2018-03-06 12:46] LABS: ALT 33 U/L (7-52); AST 19 U/L (13-39); Albumin 4.3 g/dL (3.2-5.2); Albumin/Globulin Ratio 1.7 (1-3); Alkaline Phosphatase 62 U/L (34-104); Anion Gap 7 mmol/L (2-11); BUN/Creatinine Ratio 22.1 (8-20); Blood Urea Nitrogen 15 mg/dL (6-24); CO2 Carbon Dioxide 22 mmol/L (22-32); Calcium 9.2 mg/dL (8.6-10.3); Chloride 104 mmol/L (101-111); Creatine Kinase 56 U/L (10-223); EGFR Non-African American 94.4 (>60); Globulin 2.6 g/dL (2-4); Glucose 235 mg/dL (70-100); Magnesium 1.9 mg/dL (1.9-2.7); Sodium 133 mmol/L (135-145); Total Protein 6.9 g/dL (6.4-8.9)
--- NOTE | 2018-03-06 12:49 | ED ---
HPI Chest Pain - HPI Summary HPI Summary: Patient is a 42-year-old female with a history of diabetes, CAD, hypertension and obesity presenting to the ED with left chest wall pain radiating to the left shoulder and also shooting through to the back directly to the spine. She is endorsing radiation also down the left arm which she states is "shock like." The symptoms have been intermittent and present 4 days. She was seen at urgent care 2 days ago with an EKG completed. She was told to come to the ED. She denies any fevers, sweats, chills. Denies any abdominal pain, however has been endorsing nausea and vomiting. - History of Current Complaint Chief Complaint: EDChestPainROMI Time Seen by Provider: 03/06/18 11:28 Hx Obtained From: Patient Hx Last Menstrual Period: [id number] Onset/Duration: Started Days Ago Timing: Constant Initial Severity: Moderate Current Severity: Moderate Pain Intensity: 10 Pain Scale Used: 0-10 Numeric Chest Pain Radiates: No Aggravating Factor(s): Nothing Alleviating Factor(s): Nothing Associated Signs and Symptoms: Positive: Chest Pain, Anxiety, Recent Stress - Allergy/Home Medications Allergies/Adverse Reactions: Allergies Allergy/AdvReac Type Severity Reaction Status Date / Time Penicillins Allergy Difficulty Verified 03/06/18 11:14 Breathing Home Medications: Home Medications Levothyroxine TAB* [Synthroid TAB*] 25 mcg PO DAILY 03/06/18 [History Confirmed 03/06/18] Sitagliptin Phos/Metformin HCl [Janumet 50-1000 mg] 750 mg PO BID 03/06/18 [ History Confirmed 03/06/18] Venlafaxine ER (NF) [Effexor ER (NF)] 150 mg PO DAILY 03/06/18 [History Confirmed 03/06/18] PMH/Surg Hx/FS Hx/Imm Hx Previously Healthy: Yes Endocrine/Hematology History: Reports: Hx Diabetes - II Denies: Hx Anticoagulant Therapy, Hx Thyroid Disease Cardiovascular History: Reports: Hx Hypertension Denies: Hx Pacemaker/ICD Respiratory History: Reports: Hx Pneumonia Denies: Hx Asthma, Hx Chronic Obstructive Pulmonary Disease (COPD) GI History: Denies: Hx Ulcer History: Denies: Hx Dialysis Musculoskeletal History: Denies: Hx Rheumatoid Arthritis, Hx Osteoporosis Sensory History: Denies: Hx Hearing Aid Neurological History: Denies: Hx CVA Psychiatric History: Reports: Hx Anxiety Denies: Hx Panic Disorder - Cancer History Hx Chemotherapy: No Hx Radiation Therapy: No - Surgical History Surgery Procedure, Year, and Place: Tubal 2009,may 2014,2013 right shoulder , left shoulder 2016 - Immunization History Hx Pertussis Vaccination: No Immunizations Up to Date: Yes Infectious Disease History: No Infectious Disease History: Denies: Hx Clostridium Difficile, Hx Hepatitis, Hx Human Immunodeficiency Virus (HIV), History Other Infectious Disease, Traveled Outside the [place] in Last 30 Days - Family History Known Family History: Positive: None, Unknown, Cardiac Disease, Hypertension, Diabetes, Respiratory Disease - asthma - Social History Occupation: Employed Full-time Lives: With Family Alcohol Use: None Hx Substance Use: No Substance Use Type: Reports: None Hx Tobacco Use: No Smoking Status (MU): Former Smoker Review of Systems Constitutional: Negative Negative: Fever, Chills, Fatigue, Skin Diaphoresis Negative: Epistaxis, Dental Pain Positive: Chest Pain. Negative: Palpitations Negative: Shortness Of Breath, Cough Genitourinary: Negative Positive: no symptoms reported, see HPI Negative: Arthralgia, Myalgia Skin: Negative Positive: Anxious All Other Systems Reviewed And Are Negative: Yes Physical Exam Triage Information Reviewed: Yes Vital Signs On Initial Exam: Initial Vitals Temp Pulse Resp BP Pulse Ox 98.1 F 93 24 166/89 97 03/06/18 11:11 03/06/18 11:11 03/06/18 11:11 03/06/18 11:11 03/06/18 11:11 Vital Signs Reviewed: Yes Appearance: Positive: Well-Appearing, Well-Nourished Skin: Positive: Warm, Skin Color Reflects Adequate Perfusion Head/Face: Positive: Normal Head/Face Inspection Eyes: Positive: EOMI, GIL, Conjunctiva Clear Neck: Positive: Supple, No Lymphadenopathy Respiratory/Lung Sounds: Positive: Clear to Auscultation, Breath Sounds Present Cardiovascular: Positive: RRR, Pulses are Symmetrical in both Upper and Lower Extremities. Negative: Leg Edema Left, Leg Edema Right Musculoskeletal: Positive: Normal, Strength/ROM Intact Neurological: Positive: Speech Normal Psychiatric: Positive: Anxious AVPU Assessment: Alert Diagnostics - Vital Signs Vital Signs Temp Pulse Resp BP Pulse Ox 03/06/18 11:43 97 03/06/18 11:33 86 16 136/81 97 03/06/18 11:32 93 26 97 12/31/18 11:11 98.1 F 93 24 166/89 97 - Laboratory Lab Results: Lab Results 03/06/18 03/06/18 03/06/18 Range/Units 12:07 12:07 12:07 WBC 9.1 (3.5-10.8) 10^3/ul RBC 4.41 (4.00-5.40) 10^6/ul Hgb 13.8 (12.0-16.0) g/dl Hct 40 (35-47) % MCV 92 (80-97) fL MCH 31 (27-31) pg MCHC 34 (31-36) g/dl RDW 14 (10.5-15) % Plt Count 274 (150-450) 10^3/ul MPV 8.4 (7.4-10.4) fL Neut % (Auto) 70.0 % Lymph % (Auto) 20.3 % Wayne % (Auto) 5.9 % Eos % (Auto) 3.3 % Baso % (Auto) 0.5 % Absolute Neuts (auto) 6.4 (1.5-7.7) 10^3/ul Absolute Lymphs (auto) 1.9 (1.0-4.8) 10^3/ul Absolute Monos (auto) 0.5 (0-0.8) 10^3/ul Absolute Eos (auto) 0.3 (0-0.6) 10^3/ul Absolute Basos (auto) 0 (0-0.2) 10^3/ul Absolute Nucleated RBC 0 10^3/ul Nucleated RBC % 0 INR (Anticoag Therapy) 0.90 (0.77-1.02) D-Dimer, Quantitative < 200 (Less Than 230) ng/mL Sodium 133 L (135-145) mmol/L Potassium 4.0 (3.5-5.0) mmol/L Chloride 104 (101-111) mmol/L Carbon Dioxide 22 (22-32) mmol/L Anion Gap 7 (2-11) mmol/L BUN 15 (6-24) mg/dL Creatinine 0.68 (0.51-0.95) mg/dL Est GFR ( Amer) 114.3 (>60) Est GFR (Non-Af Amer) 94.4 (>60) BUN/Creatinine Ratio 22.1 H (8-20) Glucose 235 H (70-100) mg/dL Calcium 9.2 (8.6-10.3) mg/dL Magnesium 1.9 (1.9-2.7) mg/dL Total Bilirubin 0.40 (0.2-1.0) mg/dL AST 19 (13-39) U/L ALT 33 (7-52) U/L Alkaline Phosphatase 62 (34-104) U/L Total Creatine Kinase 56 (10-223) U/L CK-MB (CK-2) Pending Troponin I Pending Total Protein 6.9 (6.4-8.9) g/dL Albumin 4.3 (3.2-5.2) g/dL Globulin 2.6 (2-4) g/dL Albumin/Globulin Ratio 1.7 (1-3) Beta HCG, Quant Pending Result Diagrams: 03/06/18 12:07 03/06/18 12:07 Lab Statement: Any lab studies that have been ordered have been reviewed, and results considered in the medical decision making process. Chest Pain Course/Dx - Course Course Of Treatment: Patient is evaluated for chest pain which is shocklike, radiating up into the left shoulder and through to the back. She's never had anything like this before. Endorses a history of CAD, hypertension and diabetes type 2 which she is insulin-dependent. She has been out of her insulin 3 weeks and just recently started 3 days ago. However symptoms began 4 days ago. She was seen at the urgent care, EKG completed. This was apparently normal per patient. Troponin 0.00. D-dimer negative. Other labs WNL. EKG shows normal sinus rhythm. Patient offers up that she recently discontinued her at home Remeron as she ran out of her prescription. She states this was 4 days ago and that her symptoms could be due to anxiety as symptoms began 4 days ago. She is given Ativan here in the ED with complete resolution of her symptoms. We'll restart her on her Remeron as well as give her Ativan for breakthrough anxiety at this time. However, due to the chest pain radiating into the arm, unable to completely rule out any cardiac pathology although everything at this point is negative. Patient understands strict return precautions and will return if she develops worsening or continuous symptoms despite the Ativan and Remeron at home. ROMINA score 1 d/t CAD. - Chest Pain Differential Diagnosis/HQI/PQRI: ACS, Angina, CHF, Chest Wall - Diagnoses Provider Diagnoses: Anxiety, Atypical chest pain Discharge - Sign-Out/Discharge Documenting (check all that apply): Patient Departure - Discharge Plan Condition: Stable Disposition: HOME Prescriptions: LORazepam [Ativan] 1 mg PO TID PRN #10 tablet MDD 3 PRN Reason: Anxiety Mirtazapine TAB* [Remeron TAB*] 15 mg PO BEDTIME #5 tab Patient Education Materials: Anxiety (ED) Forms: *Work Release Referrals: Jaskaran Burns MD [Primary Care Provider] - Additional Instructions: Please return to the ED immediately for any worsening/changing symptoms Take the ativan as needed for anxiety - take remeron at bedtime Keep your follow up appt - Billing Disposition and Condition Condition: STABLE Disposition: Home
[2018-03-06] MEDS ORDERED: Aspirin 81 mg CHEW TAB* 81 MG TAB.CHEW PO ONE (12:52)
[2018-03-06 12:53] LABS: HCG Pregnancy < 0.60 mIU/mL
[2018-03-06] MEDS ORDERED: Mirtazapine TAB* 15 MG PO ONE (13:40)
[2018-03-06] MEDS ORDERED: LORazepam TAB(*) 1 MG PO ONE (14:30)
[2018-03-06 17:00] VITALS: BP 125/69
== END 2018-03-06 16:02 | disposition home or self-care (01) ==
LOC: ED 11:03
DX: R07.89 Other chest pain (principal); F41.9 Anxiety disorder, unspecified; I25.10 Atherosclerotic heart disease of native coronary artery without angina pectoris; I10 Essential (primary) hypertension; E11.8 Type 2 diabetes mellitus with unspecified complications; Z79.4 Long term (current) use of insulin; Z87.891 Personal history of nicotine dependence; E66.9 Obesity, unspecified
CPT/HCPCS: 36415; 71046; 80053; 82550; 82553; 83605; 83735; 84484; 84702; 85025; 85379; 85610; 93005; 99283; A9270-GY

== ENCOUNTER 2018-03-14 11:16 | Emergency (ER) | payer MEDICARE, MEDICAID ==
[2018-03-14 11:26] VITALS: BP 145/82
--- NOTE | 2018-03-14 14:28 | UC ---
Respiratory Complaint HPI - HPI Summary HPI Summary: 2 days of cough, sinus congestion/pressure, green nasal drainage. Complains of chills and fatigue. No nausea/vomiting. Has uncontrolled diabetes. - History of Current Complaint Chief Complaint: UCRespiratory Stated Complaint: SINUS COMPLAINT,COUGH Time Seen by Provider: 03/14/18 12:14 Hx Obtained From: Patient Hx Last Menstrual Period: 03/14/18 Onset/Duration: Gradual Onset, Lasting Days, Still Present Timing: Constant Severity Initially: Moderate Severity Currently: Moderate Pain Intensity: 0 Pain Scale Used: 0-10 Numeric Character: Cough: Nonproductive Aggravating Factors: Nothing Alleviating Factors: Nothing Associated Signs And Symptoms: Positive: Chills, URI, Nasal Congestion, Sinus Discomfort. Negative: Dyspnea, Wheezing - Allergies/Home Medications Allergies/Adverse Reactions: Allergies Allergy/AdvReac Type Severity Reaction Status Date / Time Penicillins Allergy Difficulty Verified 03/14/18 11:26 Breathing Home Medications: Home Medications Acetaminophen/Dextromethorphan [Pain Relief Cold & Cough Liq] 1 liq PO ONCE PRN 03/14/18 [History Confirmed 03/14/18] PMH/Surg Hx/FS Hx/Imm Hx Endocrine History: Diabetes Cardiovascular History: Hypertension Other History Of: Negative For: HIV, Anticoagulant Therapy - Surgical History Surgical History: Yes Surgery Procedure, Year, and Place: Tubal 2009,may 2014,2013 right shoulder , left shoulder 2015 - Family History Known Family History: Positive: Cardiac Disease, Hypertension, Diabetes, Respiratory Disease - asthma - Social History Alcohol Use: None Substance Use Type: None Smoking Status (MU): Former Smoker When Did the Patient Quit Smoking/Using Tobacco: quit in 2009 - Immunization History Most Recent Influenza Vaccination: Review of Systems All Other Systems Reviewed And Are Negative: Yes Constitutional: Positive: Chills, Fatigue ENT: Positive: Sore Throat, Ear Ache, Nasal Discharge, Sinus Congestion Respiratory: Positive: Cough Cardiovascular: Positive: Negative Gastrointestinal: Positive: Negative Neurological: Positive: Headache Physical Exam Triage Information Reviewed: Yes Appearance: Well-Appearing, No Pain Distress, Well-Nourished Vital Signs: Initial Vital Signs Temp 98.9 F 03/14/18 11:22 Pulse 80 03/14/18 11:22 Resp 18 03/14/18 11:22 BP 145/82 03/14/18 11:22 Pulse Ox 98 03/14/18 11:22 Vital Signs Reviewed: Yes Eyes: Positive: Conjunctiva Clear ENT: Positive: Hearing grossly normal, Pharynx normal, TMs normal Neck: Positive: Supple, Nontender, No Lymphadenopathy Respiratory Exam: Normal Cardiovascular Exam: Normal Abdomen Description: Positive: Soft Musculoskeletal: Positive: No Edema Neurological: Positive: Alert Psychological: Positive: Age Appropriate Behavior Skin: Negative: Rashes UC Diagnostic Evaluation - Laboratory O2 Sat by Pulse Oximetry: 98 Respiratory Course/Dx - Differential Dx/Diagnosis Provider Diagnosis: Sinusitis Discharge - Sign-Out/Discharge Documenting (check all that apply): Patient Departure All imaging exams completed and their final reports reviewed: No Studies - Discharge Plan Condition: Stable Disposition: HOME Prescriptions: Benzonatate CAP* [Tessalon CAP*] 1 - 2 cap PO TID PRN #30 cap PRN Reason: Cough Cefdinir [Cefdinir 300 MG CAP] 300 mg PO BID #20 capsule Patient Education Materials: Sinusitis (ED) Forms: *Work Release Referrals: Mark Pimentel DO [Doctor of Osteopathy] - If Needed Additional Instructions: YOUR SYMPTOMS MAY BE VIRALLY MEDIATED BUT GIVEN YOUR IMMUNOCOMPROMISED STATE DUE TO YOUR UNCONTROLLED DIABETES WE WILL COVER YOU WITH ANTIBIOTICS. IF YOU START THE MEDICINE BE SURE TO TAKE IT FOR THE FULL COURSE. REST, HYDRATE, OTC MEDS NEEDED. WILL ALSO TREAT WITH COUGH MEDICINE. SEEK FOLLOW-UP WITH YOUR PCP IF YOU ARE NOT IMPROVING OVER THE NEXT 1-2 WEEKS. USE OTC AFRIN FOR NASAL CONGESTION. 2 SPRAYS IN EACH NOSTRIL TWICE DAILY NEEDED. DO NOT USE FOR MORE THAN 3-4 DAYS IN A ROW TO PREVENT DEVELOPING REBOUND CONGESTION. - Billing Disposition and Condition Condition: STABLE Disposition: Home
== END 2018-03-14 12:59 | disposition home or self-care (01) ==
LOC: UCEAST 11:16
DX: J32.9 Chronic sinusitis, unspecified (principal); E11.9 Type 2 diabetes mellitus without complications; I10 Essential (primary) hypertension; Z88.0 Allergy status to penicillin; Z87.891 Personal history of nicotine dependence
CPT/HCPCS: 99212; G0463

== ENCOUNTER 2018-05-16 02:12 | Emergency (ER) | payer MEDICARE, MEDICAID ==
[2018-05-16] MEDS ORDERED: Acetaminophen TAB* 325 MG PO ONE (03:30)
[2018-05-16 03:47] LABS: ABS Basophils 0.1 10^3/ul (0-0.2); ABS Eosinophils 0.3 10^3/ul (0-0.6); ABS Lymphocytes 2.2 10^3/ul (1.0-4.8); ABS Monocytes 0.6 10^3/ul (0-0.8); ABS Neutrophils 4.1 10^3/ul (1.5-7.7); ABS Nucleated RBC 0 10^3/ul; Eosinophil % 4.4 %; Hematocrit 40 % (35-47); Hemoglobin 13.6 g/dl (12.0-16.0); Lymphocyte % 30.4 %; Mean Corpuscular HGB Conc 34 g/dl (31-36); Mean Corpuscular Hemoglobin 31 pg (27-31); Mean Corpuscular Volume 92 fL (80-97); Mean Platelet Volume 8.2 fL (7.4-10.4); Nucleated Red Blood Cells % 0; Platelet Count 295 10^3/ul (150-450); Red Cell Distribution Width 14 % (10.5-15); White Blood Count 7.2 10^3/ul (3.5-10.8)
[2018-05-16] MEDS ORDERED: Magic M W2 Ben/Maal/Nyst/Lido* 240 ML MOUTHWASH (alt formulation) SWISH SWAL SCH (04:00)
[2018-05-16 04:04] LABS: Calcium 9.6 mg/dL (8.6-10.3); EGFR African American 128.9 (>60); EGFR Non-African American 106.5 (>60); Potassium 4.3 mmol/L (3.5-5.0)
[2018-05-16 04:35] VITALS: BP 113/80
--- NOTE | 2018-05-16 07:01 | ED ---
Throat Pain/Nasal Congestion - HPI Summary HPI Summary: The patient is a 43 y/o F presenting to [facility] with a chief complaint of neck and throat soreness, described as a stinging sensation for the last few days. She additionally c/o dysphagia, nonproductive cough, and mild SOB. She denies fevers and wheezing. She has taken Ibuprofen and Tylenol SHORT GOODS DRIER to no relief. The pain is currently rate 10/10 in severity. - History of Current Complaint Chief Complaint: EDThroatPain Time Seen by Provider: 05/16/18 03:24 Hx Obtained From: Patient Onset/Duration: Sudden Onset, Lasting Days, Still Present Severity: Moderate Associated Signs And Symptoms: Positive: Dysphagia, Hoarseness. Negative: Wheezing Cough: Nonproductive - Allergies/Home Medications Allergies/Adverse Reactions: Allergies Allergy/AdvReac Type Severity Reaction Status Date / Time Penicillins Allergy Difficulty Verified 03/14/18 11:26 Breathing PMH/Surg Hx/FS Hx/Imm Hx Endocrine/Hematology History: Reports: Hx Diabetes - II Denies: Hx Anticoagulant Therapy, Hx Thyroid Disease Cardiovascular History: Reports: Hx Hypertension Denies: Hx Pacemaker/ICD Respiratory History: Reports: Hx Pneumonia Denies: Hx Asthma, Hx Chronic Obstructive Pulmonary Disease (COPD) GI History: Denies: Hx Ulcer History: Denies: Hx Dialysis Musculoskeletal History: Denies: Hx Rheumatoid Arthritis, Hx Osteoporosis Sensory History: Denies: Hx Hearing Aid Neurological History: Denies: Hx CVA Psychiatric History: Reports: Hx Anxiety Denies: Hx Panic Disorder - Cancer History Hx Chemotherapy: No Hx Radiation Therapy: No - Surgical History Surgery Procedure, Year, and Place: Tubal 2009,may 2014,2013 right shoulder , left shoulder 2016 Infectious Disease History: No Infectious Disease History: Denies: Hx Clostridium Difficile, Hx Hepatitis, Hx Human Immunodeficiency Virus (HIV), History Other Infectious Disease, Traveled Outside the [place] in Last 30 Days - Family History Known Family History: Positive: Cardiac Disease, Hypertension, Diabetes, Respiratory Disease - asthma - Social History Alcohol Use: None Hx Substance Use: No Substance Use Type: Reports: None Hx Tobacco Use: No Smoking Status (MU): Former Smoker Review of Systems Negative: Fever Positive: Sore Throat - stinging and dysphagia, Other - neck soreness, loss of voice Positive: Shortness Of Breath - mild, Cough, Other - NEGATIVE: wheezing All Other Systems Reviewed And Are Negative: Yes Physical Exam - Summary Physical Exam Summary: Appearance: Well-appearing, Well-nourished, lying in bed comfortably Skin: Warm, dry, no obvious rash Eyes: sclera anicteric, no conjunctival pallor ENT: mucous membranes moist, pharynx appears normal, throat looks normal, no stridor, handling secretions without any trouble Neck: Supple, seems tender to palpation of the anterior cervical soft tissue Respiratory: Clear to auscultation, no signs of respiratory distress Cardiovascular: Normal S1, S2. No murmurs. Normal distal pulses in tibial and radial bilaterally. Abdomen: Soft, nontender, normal active bowel sounds present Musculoskeletal: Normal, Strength/ROM Intact Neurological: A&Ox3, awake and alert, mentation is normal, speech is fluent and appropriate Psychiatric: affect is normal, does not appear anxious or depressed Triage Information Reviewed: Yes Vital Signs On Initial Exam: Initial Vitals Temp Pulse Resp BP Pulse Ox 98 F 84 18 151/96 98 05/16/18 02:15 05/16/18 02:15 05/16/18 02:15 05/16/18 02:15 05/16/18 02:15 Vital Signs Reviewed: Yes Diagnostics - Vital Signs Vital Signs Temp Pulse Resp BP Pulse Ox 05/16/18 04:33 98.7 F 88 18 113/80 97 05/16/18 02:15 98 F 84 18 151/96 98 - Laboratory Lab Results: Lab Results 05/16/18 05/16/18 05/16/18 Range/Units 03:41 03:41 03:41 WBC 7.2 (3.5-10.8) 10^3/ul RBC 4.40 (4.00-5.40) 10^6/ul Hgb 13.6 (12.0-16.0) g/dl Hct 40 (35-47) % MCV 92 (80-97) fL MCH 31 (27-31) pg MCHC 34 (31-36) g/dl RDW 14 (10.5-15) % Plt Count 295 (150-450) 10^3/ul MPV 8.2 (7.4-10.4) fL Neut % (Auto) 56.5 % Lymph % (Auto) 30.4 % [place] % (Auto) 7.9 % Eos % (Auto) 4.4 % Baso % (Auto) 0.8 % Absolute Neuts (auto) 4.1 (1.5-7.7) 10^3/ul Absolute Lymphs (auto) 2.2 (1.0-4.8) 10^3/ul Absolute Monos (auto) 0.6 (0-0.8) 10^3/ul Absolute Eos (auto) 0.3 (0-0.6) 10^3/ul Absolute Basos (auto) 0.1 (0-0.2) 10^3/ul Absolute Nucleated RBC 0 10^3/ul Nucleated RBC % 0 Sodium 135 (135-145) mmol/L Potassium 4.3 (3.5-5.0) mmol/L Chloride 107 (101-111) mmol/L Carbon Dioxide 24 (22-32) mmol/L Anion Gap 4 (2-11) mmol/L BUN 14 (6-24) mg/dL Creatinine 0.61 (0.51-0.95) mg/dL Est GFR ( Amer) 128.9 (>60) Est GFR (Non-Af Amer) 106.5 (>60) BUN/Creatinine Ratio 23.0 H (8-20) Glucose 148 H (70-100) mg/dL Calcium 9.6 (8.6-10.3) mg/dL Monoscreen Negative (Negative) Group A Strep Rapid Negative (Negative) Result Diagrams: 05/16/18 03:41 05/16/18 03:41 Lab Statement: Any lab studies that have been ordered have been reviewed, and results considered in the medical decision making process. - Radiology Soft Tissue Neck XR Radiology Interpretation Completed By: Radiologist Summary of Radiographic Findings: No acute findings. ED physician has reviewed this report. EENT Course/Dx - Course Course Of Treatment: The patient is a 43 y/o F with a chief complaint of neck and throat soreness, described as a stinging sensation for the last few days. She additionally c/o dysphagia, nonproductive cough, and mild SOB. She denies fevers and wheezing. She has taken Ibuprofen and Tylenol SHORT GOODS DRIER to no relief. Upon physical examination, there is tenderness present in the neck at the anterior cervical soft tissue, the throat looks normal, there is no stridor, and she is handling secretions without any trouble. Soft Tissue Neck XR is negative. She is diagnosed with laryngitis and pharyngitis. She will be discharged home with Magic Mouth Wash. She agrees with this plan and understands the need for return to the ED if necessary. - Differential Diagnoses Differential Diagnoses: Laryngitis, Wilmer's Angina, Odontogenic Pain - Diagnoses Provider Diagnoses: Laryngitis, Pharyngitis Discharge - Sign-Out/Discharge Documenting (check all that apply): Patient Departure - Patient will be discharged home. Patient Received Moderate/Deep Sedation with Procedure: No - Discharge Plan Condition: Good Disposition: HOME Prescriptions: Magic M W2 Goldy/Maal/Nyst/Lido* 5 ml SWISH SWAL QID PRN #60 ml PRN Reason: Sore Throat Patient Education Materials: Pharyngitis (ED) Referrals: [facility] [Outside] - 4 Days (if not improving) Additional Instructions: Follow up with [facility]. Return to the emergency department for any new or worsening symptoms. - Billing Disposition and Condition Condition: GOOD Disposition: Home - Attestation Statements Document Initiated by Jolene: Yes Documenting Scribe: Lexie Romano Provider For Whom Jolene is Documenting (Include Credential): Dr. Isaias Chaudhary MD Scribe Attestation: Lexie Osuna scribed for Dr. Isaias Chaudhary MD on 05/17/18 at 0433. Scribe Documentation Reviewed: Yes Provider Attestation: The documentation as recorded by the Lexie shepard accurately reflects the service I personally performed and the decisions made by me, Dr. Isaias Chaudhary MD Status of Scribe Document: Viewed
== END 2018-05-16 04:33 | disposition home or self-care (01) ==
LOC: ED 02:12
DX: J04.0 Acute laryngitis (principal); J02.9 Acute pharyngitis, unspecified; Z88.0 Allergy status to penicillin; Z87.891 Personal history of nicotine dependence
CPT/HCPCS: 36415; 70360; 80048; 85025; 86308; 87651; 99283; A9270-GY

== ENCOUNTER 2018-06-11 11:21 | Emergency (ER) | payer MEDICARE, MEDICAID ==
[2018-06-11 11:50] VITALS: BP 127/80
--- NOTE | 2018-06-11 12:49 | UC ---
Complaint Female HPI - HPI Summary HPI Summary: 43 female with h/o DM II presents with feelings of uterine cramping, polydipsia , polyuria, L sided spasms, worse on left. no change to urine color, cloudy urine, bleeding. + chills, no fever. No diarrhea, 1 episode of vomiting 3 days ago, no nausea/ vomiting afterwards. - History Of Current Complaint Chief Complaint: UCGU Stated Complaint: PERSONAL Time Seen by Provider: 06/11/18 12:11 Hx Obtained From: Patient Hx Last Menstrual Period: 05/16/18 ?: No Onset/Duration: Sudden Onset, Lasting Days - x 3-4 days Timing: Constant - achy, Intermittent - cramping Severity Initially: Moderate Severity Currently: Severe Pain Intensity: 9 Pain Scale Used: 0-10 Numeric - Allergies/Home Medications Allergies/Adverse Reactions: Allergies Allergy/AdvReac Type Severity Reaction Status Date / Time Penicillins Allergy Difficulty Verified 06/11/18 11:51 Breathing PMH/Surg Hx/FS Hx/Imm Hx Previously Healthy: No - DM II Other History Of: Negative For: HIV, Anticoagulant Therapy - Surgical History Surgical History: Yes Surgery Procedure, Year, and Place: Tubal 2009,may 2014,2013 right shoulder , left shoulder 2015 - Family History Known Family History: Positive: Cardiac Disease, Hypertension, Diabetes, Respiratory Disease - asthma - Social History Alcohol Use: None Substance Use Type: None Smoking Status (MU): Former Smoker When Did the Patient Quit Smoking/Using Tobacco: quit in 2009 - Immunization History Most Recent Influenza Vaccination: Review of Systems All Other Systems Reviewed And Are Negative: Yes Constitutional: Positive: Chills Genitourinary: Positive: Frequency, Urgency Motor: Positive: Negative Is Patient Immunocompromised?: No Physical Exam Triage Information Reviewed: Yes Appearance: Well-Appearing, No Pain Distress, Well-Nourished Vital Signs: Initial Vital Signs Temp 98.5 F 06/11/18 11:46 Pulse 94 06/11/18 11:46 Resp 16 06/11/18 11:46 BP 127/80 06/11/18 11:46 Pulse Ox 96 06/11/18 11:46 Vital Signs Reviewed: Yes Eyes: Positive: Conjunctiva Clear Abdomen Description: Positive: No Organomegaly, Soft, Other: - suprapubic pain with TTP over L LQ, L flank. Negative: CVA Tenderness (R), CVA Tenderness (L) Neurological Exam: Normal Psychological Exam: Normal Complaint Female Dx - Course Course Of Treatment: UA mildy positive. Tx with ABX POC glucose 150. Follow up with primary physician within 2-3 days. Follow up urine cultures. - Differential Dx/Diagnosis Differential Diagnosis/HQI/PQRI: Urinary Tract Infection Provider Diagnosis: UTI (urinary tract infection) Discharge - Sign-Out/Discharge Documenting (check all that apply): Patient Departure All imaging exams completed and their final reports reviewed: No Studies - Discharge Plan Condition: Good Disposition: HOME Prescriptions: Phenazopyridine TAB* [Pyridium 100 mg TAB*] 100 mg PO TID #15 tab Sulfamethox/Trimethoprim DS* [Bactrim DS 800/160 TAB*] 1 tab PO BID #10 tab Patient Education Materials: Urinary Tract Infection in Women (DC) Forms: *Work Release Referrals: No Primary Care Phys,NOPCP [Primary Care Provider] - Additional Instructions: - Increase fluid intake - Check blood sugars at home three times daily - ANtibiotics twice daily x 5 days - Pyridium as needed every 6 hours fr urinary symptoms/ spasms. - Go To ER with fever, increased chills, increased pain, flank pain - Billing Disposition and Condition Condition: GOOD Disposition: Home
== END 2018-06-11 13:00 | disposition home or self-care (01) ==
LOC: UCEAST 11:21
DX: N39.0 Urinary tract infection, site not specified (principal); Z88.0 Allergy status to penicillin; Z87.891 Personal history of nicotine dependence
CPT/HCPCS: 81003; 87086; 99212; G0463

== ENCOUNTER 2018-09-30 08:41 | Emergency (ER) | payer MEDICARE, MEDICAID ==
[2018-09-30 09:08] VITALS: BP 146/82
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
== END 2018-09-30 09:39 | disposition home or self-care (01) ==
LOC: UCEAST 08:41
DX: R51 Headache (principal); M54.2 Cervicalgia; M54.9 Dorsalgia, unspecified; Z87.891 Personal history of nicotine dependence
CPT/HCPCS: 99212; G0463

== ENCOUNTER 2018-09-30 10:30 | Emergency (ER) | payer MEDICAID, MEDICARE, OTHER ==
[2018-09-30 10:44] VITALS: BP 140/87
[2018-09-30] MEDS ORDERED: Ondansetron INJ* 2 MG/ML VIAL IV ONE (10:57)
[2018-09-30] MEDS ORDERED: Acetaminophen TAB* 325 MG PO ONE (10:57)
[2018-09-30] MEDS ORDERED: NS 0.9% 1000 ML** 1,000 ML IV ONE (10:57)
[2018-09-30] MEDS ORDERED: Cyclobenzaprine TAB* 10 MG PO ONE (10:58)
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
[2018-09-30] MEDS ORDERED: Ketorolac INJ* 30 MG/ML 1 ML VIAL IV ONE (12:41)
== END 2018-09-30 13:04 | disposition home or self-care (01) ==
LOC: ED 10:30
DX: S16.1XXA Strain of muscle, fascia and tendon at neck level, initial encounter (principal); S06.0X9A Concussion with loss of consciousness of unspecified duration, initial encounter; V73.6XXA Passenger on bus injured in collision with car, pick-up truck or van in traffic accident, initial encounter; Y92.410 Unspecified street and highway as the place of occurrence of the external cause; Z88.0 Allergy status to penicillin; E11.9 Type 2 diabetes mellitus without complications; Z79.84 Long term (current) use of oral hypoglycemic drugs; E07.9 Disorder of thyroid, unspecified; Z87.891 Personal history of nicotine dependence
CPT/HCPCS: 70450; 72125; 96361; 96374; 96375; 99282; A9270-GY; J1885; J2405